=== PATIENT | female | born 1990 | race Caucasian/White ===

== ENCOUNTER 2021-12-27 21:09 | Inpatient (IN) | payer OTHER ==
[~2021-12-27] VITALS: Ht 162.6 cm; Wt 68.9 kg
[2021-12-27 22:52] LABS: BUN/CREATININE RATIO 16 (0-10)
[2021-12-27 22:53] LABS: HEMOGLOBIN 11.7 gm/dl (12.3-15.3); RED BLOOD COUNT 4.71 M/UL (4.00-5.10); WHITE BLOOD COUNT 14.9 K/UL (4.5-11.0)
[2021-12-28 09:26] LABS: CANDIDA ALBICANS Not Detected (Negative); CANDIDA KRUSEI Not Detected (Negative); CANDIDA TROPICALIS Not Detected (Negative); ESCHERICHIA COLI Not Detected (Negative); HAEMOPHILUS INFLUENZAE Not Detected (Negative); KLEBSIELLA OXYTOCA Not Detected (Negative); KLEBSIELLA PNEUMONIAE Not Detected (Negative); KPC-CARBAPENEM-RESISTANCE GENE Not Detected (Negative); PROTEUS Not Detected (Negative); PSEUDOMONAS AERUGINOSA Not Detected (Negative); SERRATIA MARCESANS Not Detected (Negative); STREP AGALACTIAE (GROUP B) Not Detected (Negative); STREP PYOGENES (GROUP A) Not Detected (Negative); STREPTOCOCCUS Not Detected (Negative); vanA/B (VANCOMYCIN RESIST GENE Not Detected (Negative)
[2021-12-28 09:35] LABS: BUN/CREATININE RATIO 17 (0-10)
[2021-12-28 10:57] LABS: STAPHYLOCOCCUS DETECTED (Negative); STAPHYLOCOCCUS AUREUS DETECTED (Negative)
[2021-12-29 06:22] LABS: WHITE BLOOD COUNT 11.7 K/UL (4.5-11.0)
[2021-12-29 06:23] LABS: RED BLOOD COUNT 3.62 M/UL (4.00-5.10)
[2021-12-29 06:47] LABS: BUN/CREATININE RATIO 13 (0-10)
[2021-12-30 05:46] LABS: WHITE BLOOD COUNT 20.3 K/UL (4.5-11.0)
[2021-12-30 05:47] LABS: HEMOGLOBIN 11.4 gm/dl (12.3-15.3); RED BLOOD COUNT 4.63 M/UL (4.00-5.10)
[2021-12-30 06:02] LABS: BUN/CREATININE RATIO 13 (0-10)
[2021-12-31 03:32] LABS: HEMOGLOBIN 9.2 gm/dl (12.3-15.3); RED BLOOD COUNT 3.71 M/UL (4.00-5.10)
[2021-12-31 03:47] LABS: BUN/CREATININE RATIO 12 (0-10)
[2022-01-01 03:05] LABS: HEMOGLOBIN 8.4 gm/dl (12.3-15.3); RED BLOOD COUNT 3.36 M/UL (4.00-5.10); WHITE BLOOD COUNT 16.4 K/UL (4.5-11.0)
[2022-01-01 04:01] LABS: BUN/CREATININE RATIO 10 (0-10)
--- NOTE | 2022-01-01 14:59 | NUR ---
01/01/22 1459 AT THE BEDSIDE, WAS MADE AWARE OF PATIENTS HEART RATE OF 130'S. STATED THAT NOTHING WOULD BE DONE AT THIS TIME DUE TO PATIENTS SEPSIS STATUS AND BLOOD PRESSURE WITHIN NORMAL LIMITS.
[2022-01-02 01:50] LABS: RED BLOOD COUNT 3.67 M/UL (4.00-5.10); WHITE BLOOD COUNT 17.1 K/UL (4.5-11.0)
[2022-01-02 02:08] LABS: BUN/CREATININE RATIO 9 (0-10)
[2022-01-03 01:51] LABS: HEMOGLOBIN 8.2 gm/dl (12.3-15.3); RED BLOOD COUNT 3.35 M/UL (4.00-5.10); WHITE BLOOD COUNT 18.3 K/UL (4.5-11.0)
[2022-01-03 02:27] LABS: BUN/CREATININE RATIO 10 (0-10)
[2022-01-04 02:39] LABS: RED BLOOD COUNT 3.2 M/UL (4.00-5.10)
[2022-01-04 02:59] LABS: BUN/CREATININE RATIO 10 (0-10)
[2022-01-05 02:44] LABS: HEMOGLOBIN 8.4 gm/dl (12.3-15.3); RED BLOOD COUNT 3.51 M/UL (4.00-5.10); WHITE BLOOD COUNT 18.1 K/UL (4.5-11.0)
[2022-01-05 04:30] LABS: BUN/CREATININE RATIO 10 (0-10)
[2022-01-07 02:42] LABS: HEMOGLOBIN 9.2 gm/dl (12.3-15.3); RED BLOOD COUNT 3.8 M/UL (4.00-5.10); WHITE BLOOD COUNT 15.8 K/UL (4.5-11.0)
[2022-01-07 02:49] LABS: BUN/CREATININE RATIO 11 (0-10)
[2022-01-08 05:52] LABS: HEMOGLOBIN 10.7 gm/dl (12.3-15.3); WHITE BLOOD COUNT 15.5 K/UL (4.5-11.0)
[2022-01-08 05:56] LABS: RED BLOOD COUNT 4.33 M/UL (4.00-5.10)
[2022-01-09 03:58] LABS: HEMOGLOBIN 8.9 gm/dl (12.3-15.3); RED BLOOD COUNT 3.64 M/UL (4.00-5.10)
[2022-01-09 04:07] LABS: BUN/CREATININE RATIO 26 (0-10)
[2022-01-10 04:04] LABS: HEMOGLOBIN 8.2 gm/dl (12.3-15.3); RED BLOOD COUNT 3.41 M/UL (4.00-5.10)
[2022-01-10 05:09] LABS: BUN/CREATININE RATIO 20 (0-10)
[2022-01-11 03:06] LABS: BUN/CREATININE RATIO 17 (0-10)
[2022-01-11 03:37] LABS: HEMOGLOBIN 8.8 gm/dl (12.3-15.3); RED BLOOD COUNT 3.69 M/UL (4.00-5.10); WHITE BLOOD COUNT 13.8 K/UL (4.5-11.0)
[2022-01-11] MEDS ORDERED: ONDANSETRON HCL4 MG PO (08:24)
[2022-01-11] MEDS ORDERED: CYCLOBENZAPRINE10 MG PO (08:24)
[2022-01-11] MEDS ORDERED: ROXICODONE TAB 55 MG PO (08:24)
[2022-01-11] MEDS ORDERED: ALPRAZOLAM0.5 MG PO (08:24)
[2022-01-11] MEDS ORDERED: LOPRESSOR 25 MG25 MG PO (08:24)
[2022-01-11] MEDS ORDERED: FERROUS SULFAT324 MG PO (08:41)
[2022-01-11] MEDS ORDERED: VITAMIN D21250 MCG PO (09:15)
--- NOTE | 2022-01-11 12:38 | NUR ---
REPORT CALLED TO EMERALD CHRISTIAN RN AT [facility].
== END 2022-01-11 14:22 | disposition home or self-care (01) | DRG 871 ==
LOC: ER1 21:09 → MED SURG 4 12-28 02:03 → PROG CARE 12-28 02:03 → CDU 12-28 02:03 → MED SURG 4 12-28 04:21 → PROG CARE 12-31 17:45
PROVIDERS: Family Medicine; Internal Medicine; Internal Medicine Infectious Disease; ADMIT Internal Medicine
PROC: 3E03329 Introduction of Other Anti-infective into Peripheral Vein, Percutaneous Approach (ICD-10-PCS; principal; 2021-12-28)
PROC: B24BZZZ Ultrasonography of Heart with Aorta (ICD-10-PCS; 2021-12-28)
PROC: B24BZZ4 Ultrasonography of Heart with Aorta, Transesophageal (ICD-10-PCS; 2022-01-02)
PROC: 02HV33Z Insertion of Infusion Device into Superior Vena Cava, Percutaneous Approach (ICD-10-PCS; 2022-01-08)
DX: A41.02 Sepsis due to Methicillin resistant Staphylococcus aureus (principal); E43 Unspecified severe protein-calorie malnutrition; I33.0 Acute and subacute infective endocarditis; J18.9 Pneumonia, unspecified organism; N13.6 Pyonephrosis; N17.9 Acute kidney failure, unspecified; E87.1 Hypo-osmolality and hyponatremia; I76 Septic arterial embolism; F11.13 Opioid abuse with withdrawal; F17.200 Nicotine dependence, unspecified, uncomplicated; E87.6 Hypokalemia; T14.8XXA Other injury of unspecified body region, initial encounter; Z20.822 Contact with and (suspected) exposure to COVID-19; E86.0 Dehydration; D63.1 Anemia in chronic kidney disease; B96.20 Unspecified Escherichia coli [E. coli] as the cause of diseases classified elsewhere; D53.9 Nutritional anemia, unspecified; B95.62 Methicillin resistant Staphylococcus aureus infection as the cause of diseases classified elsewhere; D50.9 Iron deficiency anemia, unspecified; G40.909 Epilepsy, unspecified, not intractable, without status epilepticus; D75.839 Thrombocytosis, unspecified; B18.2 Chronic viral hepatitis C; A59.01 Trichomonal vulvovaginitis; R65.20 Severe sepsis without septic shock; Z90.49 Acquired absence of other specified parts of digestive tract; Z98.890 Other specified postprocedural states; Z90.89 Acquired absence of other organs; Z98.51 Tubal ligation status; Z88.8 Allergy status to other drugs, medicaments and biological substances
CPT/HCPCS: ECHO; 0241U; 36415; 71045; 71250; 71260; 74018; 80048; 80053; 80202; 81001; 82550; 82553; 82607; 82728; 82746; 83540; 83550; 83605; 83735; 83880; 84100; 84132; 84443; 84484; 84703; 85025; 86140; 87040; 87077; 87086; 87150; 87186; 93005; 93306; 93312; 93320; 96365; 96366; 96375; 99285; C1751; J0696; J0878; J1335; J1650; J1756; J1885; J2060; J2250; J2270; J2405; J2543; J3010; J3370; J3411; J3475; J3480; J7030; J7070; Q9967; U0002